=== PATIENT | female | born 1990 | race Caucasian/White ===

== ENCOUNTER 2018-10-20 10:42 | Emergency (ER) | payer MEDICAID, OTHER ==
[~2018-10-20] VITALS: Ht 154.9 cm; Wt 86.2 kg
[2018-10-20 10:44] VITALS: BP 123/71
--- NOTE | 2018-10-20 10:55 | NUR ---
PATIENT AMBULATED TO BED 11.
--- NOTE | 2018-10-20 11:12 | NUR ---
PT TO ED FOR C/O MIGRAINE HEADACHE X THIS MORNING. PT REPORTING PAIN BEHIND RT EYE AND DIZZINESS. PT DENIES N/V AT THIS TIME. NO LIGHT OR SOUND SENSNTIVITY. NO NEURO DEFCITS NOTED. PT PLACED INTO BED, PENDING MD BREAUX.
[2018-10-20] MEDS ORDERED: METOCLOPRAMIDE 10 MG/2 ML INJ VIAL IVP ONE (11:15)
[2018-10-20] MEDS ORDERED: NACL 0.9% 1,000 ML IV ONE (11:15)
[2018-10-20] MEDS ORDERED: KETOROLAC 30 MG/ML VIAL IVP ONE (11:15)
[2018-10-20] MEDS ORDERED: diphenhydrAMINE 50 MG/ML VIAL IVP ONE (11:15)
--- NOTE | 2018-10-20 12:39 | NUR ---
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 WILL CONTINUE TO ASSESS FOR PAIN.
[2018-10-20 13:55] VITALS: BP 128/68
--- NOTE | 2018-10-20 13:55 | NUR ---
Patient discharged with v/s stable. Written and verbal after care instructions given and explained. Patient alert, oriented and verbalized understanding of instructions. Ambulatory with steady gait. All questions addressed prior to discharge. ID band removed. Patient advised to follow up with PMD. Rx of IMMITREX NASAL SPRAY given. Patient educated on indication of medication including possible reaction and side effects. Opportunity to ask questions provided and answered.
== END 2018-10-20 13:55 | disposition home or self-care (01) ==
LOC: MED 10:42
DX: G43.909 Migraine, unspecified, not intractable, without status migrainosus (principal); R42 Dizziness and giddiness; Z85.3 Personal history of malignant neoplasm of breast
CPT/HCPCS: 81002; 81025; 96361; 96374; 96375; 99283; J1200; J1885; J2765; J7030